=== PATIENT | male | born 1980 | race Caucasian/White ===

== ENCOUNTER 2016-05-02 23:05 | Emergency (ER) | payer OTHER ==
[~2016-05-02] VITALS: Ht 180.3 cm; Wt 90.7 kg
[~2016-05-02 23:05] MED LIST: ACETAMINOPHEN-H1 TA2 PO; ALBUTEROL2 PUFFS/17 IN; AMOXICILLIN 25250 MG PO; CENTRUM1 TAB PO; CIPRO 500MG TA500 MG PO; COLACE100 MG PO; DARVOCET-N 1001 EACH PO; DARVOCET-N6 EACH/PAK OR; FLEXERIL10 MG PO; HCTZ/LISINOPRIL1 TA3 PO; IBU-8800 MG PO; KEFLEX 500MG.500 MG PO; LISINOPRIL 5MG T5 MG PO; MEDROL 4MG. DOSE4 MG PO; MELOXICAM15 MG PO; MIRALAX(PO17 GM/1 PA PO; NORCO 325 MG-51 TAB PO; PROBIOTIC1 EAC3 PO; SEPTRA DS 800 M1 TAB PO; TESSALON PERLE100 MG PO; VIBRAMYCIN 100100 MG PO; VICODIN 5/500 T1 TAB PO; VISTARIL25 MG PO; ZITHROMAX Z PA250 MG PO; ZOLOFT 50MG TAB50 MG PO; [UNRECOGNIZED DRUG - REMARK] PO
[2016-05-02] MEDS ORDERED: KEFLEX 500MG.500 MG PO (23:32)
--- NOTE | 2016-05-02 23:33 | Emergency Room Report ---
History of Present Illness Time Seen by MD Lozano Presenting Problem in Triage Pt arrived:Walked Presenting Problem:PT ADVISED HE STEPPED ON A NAIL EARLIER THIS EVENING. PT HAS SMALL PUNCTURE TO THE LEFT GREAT TOE Onset of symptoms date/time:/ or onset unknown for:MEDICAL HX UNKNOWN Treatment Prior to Arrival: [employer] Provided by: Sepsis Risk Assessment: Temp: 98.7 B/P: 146/100 MAP: 115 Pulse: 64 Resp: 16 Recent fever? N Clinical Suspician of Infection? N Mental Status: 1 - Regular (Normal Baseline) Sepsis Risk:Low Sepsis Risk Have you (or family members/close friends) recently traveled outside the [place]? N If Yes, where/when: Have you had exposure to infectious disease within the past month? N TB? Other? Specify: Source patient, RN notes reviewed, old records Exam Limitations no limitations Comment stepped on nail with pw lt great toe Cardiac Chest Pain Chest pain indicative of cardiac No Timing/Duration this evening Severity moderate ALLERGIES Coded Allergies: No Known Allergies (04/30/15) Home Medications Reported Medications LISINOPRIL/HYDROCHLOROTHIAZIDE (Lisinopril-Hctz 20-12.5 MG Tab) 1 TAB PO DAILY #90 Meloxicam (Meloxicam 15MG) 15 MG PO DAILY #90 History Medical History General CAD? No Angina: No [place]: No Hypertension? Yes Hyperlipidemia? No CHF? No DVT? No PE? No COPD? No Asthma? No Anemia? No GERD? No Gastric ulcers? No GI Bleed? No Hernia? No Thyroid Problems? No Hypothyroidism? No CVA? No Seizures? No Diabetes? No Renal Insuffiency? No End Stage Renal Disease? No UTI? No Stones? No BPH? No GB Disease: No Nephritic Syndrome? No Asplenia? No Hepatitis? No Sickle Cell Disease? No Arthritis? No Migraines? No Cataracts? No Glaucoma? No MRSA? No HIV? No TB? No Anxiety? No Depression? No Cancer? No More? No Immunization Hx DT/Tetanus Unknown Flu 2014-FSN Pneumonia Never Had Surgical Hx Previous Surgery?Y HEMORRHOIDECTOMY Family History Family Hx Diabetes Yes CAD No Hypertension Yes Hyperlipidemia No Cancer No TB No Social History Smoking Hx Smoker: Never Smoker Tobacco: No Packs/day N/A Alcohol Alcohol: No Drugs none Review of Systems All Other Systems Reviewed and Negative Constitutional denies fever Eyes denies drainage ENT denies: ear pain, epistaxis, throat pain. Respiratory denies cough, denies shortness of breath, denies wheezing Cardiovascular denies chest pain, denies syncope Gastrointestinal denies abdominal pain, denies diarrhea, denies vomiting Genitourinary denies: dysuria, frequency, hesitancy, hematuria. Musculoskeletal denies back pain, denies joint pain, denies joint swelling, denies neck pain Skin see HPI, denies rash, other Psychiatric/Neurological denies headache, denies seizure Physical Exam Vital Signs Vital Signs Date Time Temp Pulse Resp B/P Pulse O2 O2 Flow FiO2 Ox Delivery Rate 05/03 2311 98.7 64 16 146/100 98 - WBC >12,000 or <4,000 or 10% bands? 2 or more SIRS Criteria Met? B/P:146/100 MAP:115 Creatinine >2.0? UA output<0.5ml/kg/hr for 2 hrs? Platelet count >100,000? Lactate >2.0mmol/1? INR >1.2 or PTT > than 60 sec? Evidence of Organ Dysfunction? Provider documented clinical suspician of infection? N Sepsis Criteria Count: 0 Sepsis Risk: Low Sepsis Risk General Appearance no apparent distress Eye Exam - bilateral eye PERRL, bilateral eye EOMI Ear, Nose, Throat normal ENT inspection Neck supple Respiratory Status No: respiratory distress. Cardiovascular regular rate/rhythm Peripheral Pulses Pulses normal Yes Extremities normal inspection Strength 4 Upper Ext (L), 4 Upper Ext (R), 4 Lower Ext (L), 4 Lower Ext (R) Neurologic alert, supervisor pipeline II-XII nml as tested, no motor/sensory deficits Reflexes Reflexes normal No Mental status normal mood/affect Skin pw lt great toe Medical Decision Making LABS/Meds/Orders Pt receiving controlled substance in ED? No Results/Orders Current Medication Orders Sig/Erin Start time Last Medication Dose Route Stop Time Status Admin Diphtheria/Pertussis/ 0 .STK-MED ONE 05/03 2315 DC Tetanus Vacc IM Diphtheria/Pertussis/ 0.5 ML ONCE ONE 05/02 2314 DC 05/02 Tetanus Vacc IM 05/02 Departure Departure Time of Disposition 2328 Disposition DC Home or Self Care(routine) Clinical Impression Primary Impression: Puncture wound of foot Qualifiers: Encounter type: initial encounter Laterality: left Qualified Code: S91.332A - Puncture wound without foreign body, left foot, initial encounter Condition STABLE Referrals Yadiel HARP,Enio Castellon (Family) Patient Instructions DI for Puncture Wound Additional Instructions use meds and see pcp as needed Discharge Counseling Counseled pt/family regarding diagnosis, follow up needs Prescriptions Current Visit Scripts CEPHALEXIN (Keflex 500MG Capsule) 500 MG PO Q8H #30 CAP ED Critical Care Critical Care No at 1833
[2016-05-02 23:37] VITALS: BP 146/100
== END 2016-05-02 23:37 | disposition home or self-care (01) ==
LOC: ER 23:05
DX: S91.332A Puncture wound without foreign body, left foot, initial encounter (principal); W45.0XXA Nail entering through skin, initial encounter; Y92.009 Unspecified place in unspecified non-institutional (private) residence as the place of occurrence of the external cause